=== PATIENT | male | born 1975 | race Caucasian/White ===

== ENCOUNTER → 2024-02-13 | Outpatient (CLI) | payer BC ==
[~2024-02-13] MED LIST: REGADENOSON 0.4 MG/5 ML SYRINGE IV PRN
--- NOTE | 2024-02-13 11:35 | CA ---
Lexiscan Nuclear Stress Test Report Name: Chandni Hall Exam Date: 02/13/2024 09:01 Exam Location: [facility] Ht (in): 66 Wt (lb): 153 BSA: 1.78 Ordering Phys: Jett Gaffney MD Referring Phys: Serina Busby [facility] Technologist: Dionicio Cedillo Age: 48 Gender: M : 1975 Procedure CPT: Indications: R94.31 ABNORMAL ELECTROCARDIOGRAM ICD-10 Codes: Patient History: NUMBNESS FACE/NECK, TOB Medications: NONE Meds past 24 hrs: Pretest Chest Pain: STRESS TEST Lexiscan Protocol Exercise Duration (min:sec): 01:[address] Depressions (mm): Angina Score: Pineda Score: Resting HR (bpm): 74 Peak HR (bpm): 104 Resting BP (mmHg): 141 / 87 Peak BP (mmHg): 142 / 74 MPHR: 170 Target HR: 145 % MPHR: 61 METS: 1.0 Total Dose: Peak Dose: Atropine: Double Product: 18092 BP Response: Stress Termination: INFUSION COMPLETE Stress Symptoms: DIFFICULTY IN BREATHING Stress Summary: ECG ANALYSIS Resting ECG: Sinus rhythm. Normal conduction. No arrhythmias. Normal repolarization. Stress ECG: No ECG changes from baseline with Lexiscan infusion. CONCLUSIONS No ECG evidence of ischemia with Lexiscan infusion. Nuclear test results to follow. Dr. Max Goodrich MD (Electronically Signed) Final Date: 13 Feb 2024 11:34
--- NOTE | 2024-02-13 12:15 | NM ---
EXAMINATION TYPE: NM stress lexiscan cardiolite DATE OF EXAM: 02/13/2024 COMPARISON: NONE CLINICAL INDICATION: Male, 48 years old with history of R94.31 ABNORMAL ELECTROCARDIOGRAM; TECHNIQUE: After the intravenous administration of 9.9 mCi Tc 99m Sestamibi - Cardiolite resting SPE CT images acquired 45 minutes post injection. The patient received 0.4mg Lexiscan, 25.4 mCi Tc 99m Sestamibi - Stress images obtained [address] injection FINDINGS: Review of stress and rest SPECT images demonstrates decreased perfusion along the mid to apical infer ior wall larger on rest. Also decreased perfusion along the mid anteroseptal wall only on rest. No di screte reversibility is seen. Gated analysis shows normal wall motion with an estimated left ventricu lar ejection fraction of 66 %. TID is calculated at 0.95, within normal limits. IMPRESSION: Areas of attenuation artifact along the inferior wall and mid anteroseptal wall. No scint igraphic evidence for inducible ischemia.
== END | disposition home or self-care (01) ==
LOC: RADNMMAIN 07:37
PROVIDERS: ATTEND Family Medicine
DX: R94.31 Abnormal electrocardiogram [ECG] [EKG] (principal)
CPT/HCPCS: 93017; 78452; A9500; J2785